=== PATIENT | male | born 1935 | race Caucasian/White ===

== ENCOUNTER 2018-06-11 10:00 | Day surgery (SDC) | payer MEDICARE, OTHER ==
[~2018-06-11] VITALS: Ht 180.3 cm; Wt 77.1 kg
[~2018-06-11 10:00] MED LIST: 8 HOUR PAIN RE650 MG PO; ADVANCED EYE H1 EAC1 PO; ALL DAY ALLERGY10 M1 PO; Aspirin EC81 MG PO; Coq-10100 MG PO; Flovent Diskus50 MCG IH; OXYC1TAB11 PO; Omeprazole20 M1 PO; PROM25 PO; TERA5 PO; ZESTORETIC 20-121 EA PO
== END 2018-06-11 14:37 | disposition home or self-care (01) ==
LOC: ORSCSDS 10:00
PROVIDERS: Orthopaedic Surgery
PROC: 0RBK4ZZ Excision of Left Shoulder Joint, Percutaneous Endoscopic Approach (ICD-10-PCS; principal; 2018-06-11 11:45)
DX: M75.112 Incomplete rotator cuff tear or rupture of left shoulder, not specified as traumatic (principal); M75.22 Bicipital tendinitis, left shoulder; M75.42 Impingement syndrome of left shoulder; I10 Essential (primary) hypertension; Z79.899 Other long term (current) drug therapy; Z79.82 Long term (current) use of aspirin
CPT/HCPCS: J0171; J0690; J1100; J2250; J2370; J2405; J2710; J3010; J7120

== ENCOUNTER 2021-10-03 10:07 | Inpatient (IN) | payer MEDICARE, OTHER ==
[~2021-10-03] VITALS: Ht 182.9 cm; Wt 78.8 kg
[2021-10-03 10:53] LABS: BASOPHILS ABSOLUTE AUTO 0.04 K/mm3 (0.00-0.23); BASOPHILS PERCENT AUTO 1 % (0-2); EOSINOPHILS ABSOLUTE AUTO 0.07 K/mm3 (0.00-0.68); EOSINOPHILS PERCENT AUTO 1 % (0-6); Hematocrit 37.4 % (37.0-53.0); Hemoglobin 12.7 g/dL (13.5-17.5); IMMATURE GRAN ABSOLUTE AUTO 0.05 K/mm3 (0.00-0.10); IMMATURE GRAN PERCENT AUTO 1 % (0-1); LYMPHOCYTES ABSOLUTE AUTO 1.52 K/mm3 (0.84-5.20); LYMPHOCYTES PERCENT AUTO 18 % (21-46); MONOCYTES ABSOLUTE AUTO 0.81 K/mm3 (0.16-1.47); MONOCYTES PERCENT AUTO 10 % (4-13); Mean Corpuscular HGB 30.2 pg (26.0-34.0); Mean Corpuscular Volume 89 fL (80-100); Mean Platelet Volume 10.3 fL (9.1-12.4); NEUTROPHILS ABSOLUTE AUTO 6.05 K/mm3 (1.96-9.15); NEUTROPHILS PERCENT AUTO 71 % (41-73); Platelet Count 202 K/mm3 (150-400); RDW Coefficient Variation 12.7 % (11.7-14.2); RDW Standard Deviation 41.8 fL (35.1-46.3); White Blood Cell Count 8.54 K/mm3 (4.00-11.30)
[2021-10-03] MEDS ORDERED: LUTEIN6 MG (11:05)
[2021-10-03] MEDS ORDERED: MULTI-VITAMIN1 EAC2 PO (11:06)
[2021-10-03 11:23] LABS: Alanine Aminotransfer (ALT/SGP 45 U/L (12-78); Albumin, Blood 3.5 g/dL (3.4-5.0); Alk Phos 55 U/L (50-136); Anion Gap 5 mmol/L (6-16); Aspartate Aminotrans (AST/SGOT 39 U/L (12-37); Bilirubin, Total 0.7 mg/dL (0.1-1.0); Blood Urea Nitrogen 22 mg/dL (8-24); Bun/Creatinine Ratio 25.9 (12.0-20.0); CO2, Blood 26 mmol/L (21-32); Calcium, Blood 9.6 mg/dL (8.5-10.1); Chloride, Blood 106 mmol/L (98-108); Creatinine, Blood 0.85 mg/dL (0.60-1.20); Globulin, Blood 3.4 g/dL (2.2-4.0); Glomerular Filtration Rate >60 (60-); Glucose, Blood 128 mg/dL (70-99); Sodium, Blood 137 mmol/L (136-145); Total Protein, Blood 6.9 g/dL (6.4-8.2)
[2021-10-03 14:28] LABS: SARS-Cov-2 (COVID-19) PCR, MMC NEGATIVE (NEGATIVE)
[2021-10-03] MEDS ORDERED: LEVSOD75 PO (14:57)
[2021-10-03 16:54] LABS: Hematocrit 33.2 % (37.0-53.0)
--- NOTE | 2021-10-03 17:30 | NUR ---
ADMISSION/SHIFT SUMMARY: PT ADMITTED FROM ER TODAY, ARRIVING TO UNIT APPROX [id number]. PT ADMITTED FOR LOWER GI BLEED, PT REPORTS BRIGHT RED BLOOD IN STOOL SINCE THIS AM, WENT [facility] THEN TRANSFERED HERE FOR CONTINUATION OF CARE. PT ARRIVES A&Ox4, MAINTAINS O2 SATS >92% ON RA, SR W/PAC ON MONITOR, SBA TO RESTROOM. PT P[place] W/HEARING AIDS AT HOME. NS INFUSING TO RAC AT 125ML/HR. PT ON CLEAR LIQUID DIET. DR AMADOR HAS BEEN TO BEDSIDE FOR EVAL, PLAN AT THIS TIME IS COLONOSCOPY TOMORROW. CURRENTLY, PT RESTING IN BED W/CALL LIGHT WITHIN REACH. WILL CONTINUE TO MONITOR AND TREAT ACCORDINGLY.
[2021-10-03 22:10] LABS: Hematocrit 28.9 % (37.0-53.0); Hemoglobin 9.8 g/dL (13.5-17.5)
[2021-10-04 04:18] LABS: Hematocrit 26.2 % (37.0-53.0); Hemoglobin 8.9 g/dL (13.5-17.5); Mean Corpuscular HGB 30.3 pg (26.0-34.0); Mean Corpuscular Volume 89 fL (80-100); Mean Platelet Volume 10.6 fL (9.1-12.4); Platelet Count 188 K/mm3 (150-400); RDW Coefficient Variation 12.6 % (11.7-14.2); RDW Standard Deviation 41.3 fL (35.1-46.3); Red Blood Cell Count 2.94 M/mm3 (4.30-5.90); White Blood Cell Count 7.59 K/mm3 (4.00-11.30)
[2021-10-04 05:16] LABS: Alanine Aminotransfer (ALT/SGP 33 U/L (12-78); Albumin, Blood 2.6 g/dL (3.4-5.0); Alk Phos 40 U/L (50-136); Anion Gap 5 mmol/L (6-16); Aspartate Aminotrans (AST/SGOT 24 U/L (12-37); Bilirubin, Total 0.5 mg/dL (0.1-1.0); Blood Urea Nitrogen 21 mg/dL (8-24); Bun/Creatinine Ratio 29.7 (12.0-20.0); CO2, Blood 24 mmol/L (21-32); Calcium, Blood 9.1 mg/dL (8.5-10.1); Chloride, Blood 109 mmol/L (98-108); Creatinine, Blood 0.71 mg/dL (0.60-1.20); Globulin, Blood 2.6 g/dL (2.2-4.0); Glomerular Filtration Rate >60 (60-); Glucose, Blood 129 mg/dL (70-99); Potassium, Blood 4.1 mmol/L (3.5-5.5); Sodium, Blood 138 mmol/L (136-145); Total Protein, Blood 5.2 g/dL (6.4-8.2)
--- NOTE | 2021-10-04 06:33 | NUR ---
SHIFT SUMMARY PT IS ALERT AND ORIENTED X4. PT 'S VITALS HAVE BEEN STABLE AND HAS REMAINED ON ROOM AIR. MACHINE CAGE MAKER WAS CALLED AT APPROX. 2150 DUE TO PT BECOMING BRADYCARDIC INTO THE 20'S WHEN GETTING UP TO THE BATHROOM AND WAS FOUND UNRESPONSIVE WHERE STERNAL RUB WAS PERFORMED. HE WAS DIAPHORETIC AND PALE. THERE WAS BRIGHT RED BLOOD AND WHAT LOOKED LIKE A CLOT IN THE TOILET. PT DENIED PAIN AND MEMORY OF EVENT. PT HAS NOW BEEN USING BSC WITH SBA AND IS TOLERATING WELL WITH NO MORE EPISODES. PT DENIES ANY CHEST PAIN OR SOB WELL ABDOMINAL PAIN. CALL LIGHT IS WITHIN REACH.
[2021-10-04 07:45] LABS: Hematocrit 26.7 % (37.0-53.0)
[2021-10-04 12:12] LABS: Hematocrit 27.5 % (37.0-53.0); Hemoglobin 9.2 g/dL (13.5-17.5)
--- NOTE | 2021-10-04 14:42 | NUR ---
UPDATE PT TO PROCEDURE AT THIS TIME. PT TAKEN BY IJEOMA WITH CHART
--- NOTE | 2021-10-04 15:22 | NUR ---
10/04/21 1522 ERROL WILD History, Chart, Medications and Allergies reviewed before start of procedure. 3-LEAD EKG REVIEWED WITH PHYSICIAN PRIOR TO START OF PROCEDURE. O2 VIA N/C INTACT THROUGHOUT SEDATION/PROCEDURE. MONITOR INTACT WITH CONTINUOUS PULSE OXIMETRY AND INTERMITTENT BP. PATIENT DETERMINED TO BE ASA APPROPRIATE FOR PROPOFOL SEDATION PRIOR TO START OF PROCEDURE BY DR. AMADOR.
[2021-10-04 18:03] LABS: Hematocrit 23.4 % (37.0-53.0); Hemoglobin 7.9 g/dL (13.5-17.5)
--- NOTE | 2021-10-04 18:12 | NUR ---
SHIFT SUMMARY PT ALERT AND ORIENTED X 4. PT ON CLEAR LIQUID DIET THIS AM. FINISHED BOWEL PREP MEDICATION BY 1100. HAD CLEAR/RED STOOL BY 1100. NPO BY 1300. PT TO DAY SURGERY. ONCE BACK FROM DAY SURGERY PT VSS. PT SBA TO COMMODE. OXYGEN SATURATION MAINTAINED ABOVE 95% ON RA. PT REPORTS NO ABD PAIN. PT ABLE TO TURN SELF IN BED NEEDED. NO CP OR PRESSURE. PT UPDATED ONCE BACK TO UNIT. WILL CONT TO MONITOR UNTIL REPORT GIVEN TO NIGHTSHIFT RN.
--- NOTE | 2021-10-04 21:35 | NUR ---
CARE ASSUMPTION PT LYING IN BED DENYING ANY PAIN OR NAUSEA. NS RUNNING AT 125ML/HR. PT DENYING ANY FURTHER NEEDS AT THIS TIME.
[2021-10-04 21:45] LABS: Hematocrit 22.4 % (37.0-53.0); Hemoglobin 7.5 g/dL (13.5-17.5)
[2021-10-05 03:47] LABS: BASOPHILS ABSOLUTE AUTO 0.04 K/mm3 (0.00-0.23); BASOPHILS PERCENT AUTO 1 % (0-2); EOSINOPHILS ABSOLUTE AUTO 0.14 K/mm3 (0.00-0.68); EOSINOPHILS PERCENT AUTO 2 % (0-6); Hematocrit 21.4 % (37.0-53.0); Hemoglobin 7.2 g/dL (13.5-17.5); IMMATURE GRAN ABSOLUTE AUTO 0.06 K/mm3 (0.00-0.10); IMMATURE GRAN PERCENT AUTO 1 % (0-1); LYMPHOCYTES PERCENT AUTO 20 % (21-46); MONOCYTES ABSOLUTE AUTO 0.93 K/mm3 (0.16-1.47); MONOCYTES PERCENT AUTO 12 % (4-13); Mean Corpuscular HGB 29.9 pg (26.0-34.0); Mean Corpuscular HGB Conc 33.6 g/dL (31.5-36.5); Mean Corpuscular Volume 89 fL (80-100); Mean Platelet Volume 10.5 fL (9.1-12.4); NEUTROPHILS ABSOLUTE AUTO 5.13 K/mm3 (1.96-9.15); NEUTROPHILS PERCENT AUTO 65 % (41-73); Platelet Count 154 K/mm3 (150-400); RDW Standard Deviation 42.3 fL (35.1-46.3); Red Blood Cell Count 2.41 M/mm3 (4.30-5.90)
[2021-10-05 04:02] LABS: Anion Gap 4 mmol/L (6-16); Blood Urea Nitrogen 14 mg/dL (8-24); Bun/Creatinine Ratio 18.5 (12.0-20.0); CO2, Blood 26 mmol/L (21-32); Calcium, Blood 7.9 mg/dL (8.5-10.1); Chloride, Blood 111 mmol/L (98-108); Creatinine, Blood 0.76 mg/dL (0.60-1.20); Glomerular Filtration Rate >60 (60-); Glucose, Blood 110 mg/dL (70-99); Potassium, Blood 3.5 mmol/L (3.5-5.5); Sodium, Blood 141 mmol/L (136-145)
--- NOTE | 2021-10-05 05:06 | NUR ---
MINING MANAGER SUMMARY PT IS AXO X4 AND USES HIS CALL LIGHT TOMAKE HIS NEEDS KNOWN. BP WNL AND STABLE THIS SHIFT. TELE SHOWING SR IN THE 80'S W PAC'S. O2 SATS >92% ON RM AIR. PT AFBRILE THIS SHIFT. PT HAD NO BM'S THIS SHIFT W NO S/S OF BLEEDING. PT UP SEVERAL TIMES TO VOID THIS SHIFT W NO EPISODES OF DIZZINESS OR FEELING THAT HE WAS GOING TO PASS OUT. NS CONTINUES TO RUN AT 125ML/HR. WILL REPORT TO ONCOMING RN.
[2021-10-05 08:53] LABS: Hematocrit 22.5 % (37.0-53.0); Hemoglobin 7.5 g/dL (13.5-17.5)
--- NOTE | 2021-10-05 09:24 | NUR ---
PATIENT ALERT AND ORIENTED X4. A LITTLE HARD OF HEARING. NEURO WNL. ABLE TO MOVE ALL EXTREMITITES. LEFT FINGERS CLENCHED, PATIENT STATES WNL. PERRLA. BILATERAL GRAVEDIGGER STRENGTH. TELE SHOWING SINUS WITH 1ST DEGREE BLOCK AND HR 70'S. BP STABLE. NO SIGNS OF EDEMA. DENIES CHEST PAIN/PRESSURE. LUNGS SOUNDING CLEAR. ON ROOM AIR. DENIES COUGH/SOB. USING BATHROOM WITH STANDBY ASSIST. NO SIGNS OF BLEEDING, NO BOWEL MOVEMENT THIS AM. PATIENT REPORTS NO SIGNS OF BLEEDING SINCE YESTERDAY AM. VOIDING URINE WNL. TRENDING HEMAGLOBIN. DR. PABLO IN TO SEE PATIENT AND PLANS TO DISCHARGE, ORDERS TO STOP FLUIDS. CALL LIGHT IN REACH. SKIN OVERALL C/D/I. IV TO RIGHT AC SALINE LOCKED. WILL CONTINUE TO MONITOR.
[2021-10-05 12:36] LABS: Hematocrit 23.9 % (37.0-53.0); Hemoglobin 7.9 g/dL (13.5-17.5)
--- NOTE | 2021-10-05 13:19 | NUR ---
Patient is sitting on the EOB and alert. 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 Patient tells me that he has 10 acres and [place] and that 2 of his three adult children live with him in the home (his other son several years ago). 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 I provide therapeutic listening and prayer. Patient voices appreciation for the time and care. I will continue to remain available to patient and family.
--- NOTE | 2021-10-05 14:33 | NUR ---
DISCHARGE: NO ACUTE CHANGES SEE PREVIOUS NOTE. HEMAGLOBIN LEVELS TRENDING UP. IN TO DJ INSTRUCTOR PATIENT. IV REMOVED PER PROTOCOL. DISCHARGE INSTRUCTIONS REVIEWED AND QUESTIONS ANSWERED. PATIENT LEFT UNIT VIA WHEELCHAIR WITH ALL PERSONAL BELONGINGS.
== END 2021-10-05 14:29 | disposition home or self-care (01) | DRG 379 ==
LOC: ER 10:07 → ERHOLD 13:11 → PCU 13:11
PROVIDERS: Emergency Medicine; Family Medicine; Internal Medicine Gastroenterology; Nurse Practitioner Acute Care; ADMIT Internal Medicine
PROC: 0DBK8ZZ Excision of Ascending Colon, Via Natural or Artificial Opening Endoscopic (ICD-10-PCS; principal; 2021-10-04 15:00)
DX: K57.31 Diverticulosis of large intestine without perforation or abscess with bleeding (principal); K21.9 Gastro-esophageal reflux disease without esophagitis; N40.0 Benign prostatic hyperplasia without lower urinary tract symptoms; I10 Essential (primary) hypertension; I95.9 Hypotension, unspecified; Z98.890 Other specified postprocedural states; Z20.822 Contact with and (suspected) exposure to COVID-19; Z79.899 Other long term (current) drug therapy; Z79.82 Long term (current) use of aspirin; K64.4 Residual hemorrhoidal skin tags
CPT/HCPCS: 36415; 80048; 80053; 85014; 85018; 85025; 85027; 86850; 86900; 86901; 88305; 99284; A9270; J2704; J7030; U0004

== ENCOUNTER → 2021-10-12 | Outpatient (CLI) | payer MEDICARE, OTHER ==
[~2021-10-12] MED LIST changes: +LEVSOD75 PO; +LUTEIN6 MG; +MULTI-VITAMIN1 EAC2 PO
[2021-10-12 16:12] LABS: BASOPHILS ABSOLUTE AUTO 0.04 K/mm3 (0.00-0.23); BASOPHILS PERCENT AUTO 1 % (0-2); EOSINOPHILS ABSOLUTE AUTO 0.12 K/mm3 (0.00-0.68); EOSINOPHILS PERCENT AUTO 2 % (0-6); Hematocrit 25.2 % (37.0-53.0); IMMATURE GRAN ABSOLUTE AUTO 0.08 K/mm3 (0.00-0.10); IMMATURE GRAN PERCENT AUTO 1 % (0-1); LYMPHOCYTES PERCENT AUTO 23 % (21-46); MONOCYTES ABSOLUTE AUTO 0.71 K/mm3 (0.16-1.47); MONOCYTES PERCENT AUTO 12 % (4-13); Mean Corpuscular HGB 29.7 pg (26.0-34.0); Mean Corpuscular HGB Conc 31.7 g/dL (31.5-36.5); Mean Corpuscular Volume 94 fL (80-100); Mean Platelet Volume 10.7 fL (9.1-12.4); NEUTROPHILS ABSOLUTE AUTO 3.73 K/mm3 (1.96-9.15); NEUTROPHILS PERCENT AUTO 61 % (41-73); Platelet Count 253 K/mm3 (150-400); RDW Coefficient Variation 14.9 % (11.7-14.2); RDW Standard Deviation 48.9 fL (35.1-46.3); Red Blood Cell Count 2.69 M/mm3 (4.30-5.90); White Blood Cell Count 6.08 K/mm3 (4.00-11.30)
[2021-10-12 18:13] LABS: Alanine Aminotransfer (ALT/SGP 42 U/L (12-78); Albumin, Blood 3.1 g/dL (3.4-5.0); Alk Phos 47 U/L (50-136); Anion Gap 5 mmol/L (6-16); Aspartate Aminotrans (AST/SGOT 32 U/L (12-37); Bilirubin, Total 0.2 mg/dL (0.1-1.0); Blood Urea Nitrogen 20 mg/dL (8-24); Bun/Creatinine Ratio 24.5 (12.0-20.0); CO2, Blood 27 mmol/L (21-32); Calcium, Blood 9.3 mg/dL (8.5-10.1); Chloride, Blood 105 mmol/L (98-108); Creatinine, Blood 0.82 mg/dL (0.60-1.20); Glomerular Filtration Rate >60 (60-); Glucose, Blood 106 mg/dL (70-99); Sodium, Blood 137 mmol/L (136-145); Total Protein, Blood 6.1 g/dL (6.4-8.2)
== END | disposition home or self-care (01) ==
LOC: LAB SHORT 13:26
PROVIDERS: Physician Assistant
DX: K92.2 Gastrointestinal hemorrhage, unspecified (principal)
CPT/HCPCS: 80053; 85025